=== PATIENT | female | born 1995 | race Caucasian/White ===

== ENCOUNTER 2018-06-09 18:57 | Emergency (ER) | payer OTHER ==
[2018-06-09 20:03] LABS: URINE PH (Dip) POC 6.5 (5.0-8.5)
[2018-06-09 20:03] LABS: URINE BLOOD (Dip) POC Negative (NEGATIVE); URINE GLUCOSE (Dip) POC Negative (NEGATIVE); URINE KETONES (Dip) POC 1+ (NEGATIVE); URINE LEUKOCYTE EST (Dip) POC 3+ (NEGATIVE); URINE NITRITE (Dip) POC Negative (NEGATIVE); URINE TOTAL PROTEIN POC 1+ (NEGATIVE)
[2018-06-09] MEDS: METOCLOPRAMIDE 10 MG INJ IV (20:26)
[2018-06-09] MEDS: ACETAMINOPHEN 500 MG TAB PO (20:26)
[2018-06-09] MEDS: SOD CHLORIDE 0.9% 1,000 ML IV (20:26)
[2018-06-09 20:37] LABS: ADD MAN DIFF? NO
[2018-06-09 20:38] LABS: BASOPHIL # 0.1 10^3/ul (0.0-0.1); BASOPHILS % 0.4 % (0.0-2.0); EOSINOPHILS # 0.2 10^3/ul (0.0-0.5); EOSINOPHILS % 1.1 % (0.0-7.0); HEMATOCRIT 37.8 % (37.0-47.0); HEMOGLOBIN 13.2 g/dl (12.0-16.0); LYMPHOCYTES # 1.6 10^3/ul (0.8-2.9); LYMPHOCYTES % 11.5 % (15.0-51.0); MEAN CORPUSCULAR HEMOGLOBIN 30.9 pg (29.0-33.0); MEAN CORPUSCULAR HGB CONC 34.9 g/dl (32.0-37.0); MEAN CORPUSCULAR VOLUME 88.5 fl (82.0-101.0); MEAN PLATELET VOLUME 11.2 fl (7.4-10.4); MONOCYTE # 0.9 10^3/ul (0.3-0.9); MONOCYTES % 6.5 % (0.0-11.0); NEUTROPHIL # 11.2 10^3/ul (1.6-7.5); NEUTROPHILS % 79.7 % (39.0-77.0); PLATELET COUNT 244 10^3/UL (140-415); RED BLOOD COUNT 4.27 10^6/ul (4.20-5.40); RED CELL DISTRIBUTION WIDTH 12.4 % (11.5-14.5)
[2018-06-09 20:38] LABS: WHITE BLOOD COUNT 14.1 10^3/ul (4.8-10.8)
[2018-06-09 20:47] LABS: ADD UMIC YES; UR AMORPHOUS CRYSTAL FEW /HPF (NONE SEEN); UR ASCORBIC ACID NEGATIVE (NEGATIVE); UR BACTERIA FEW /HPF (NONE SEEN); UR BILIRUBIN (Dip) NEGATIVE (NEGATIVE); UR BLOOD (Dip) NEGATIVE (NEGATIVE); UR CLARITY CLOUDY (CLEAR); UR COLOR YELLOW (YELLOW); UR GLUCOSE (Dip) NEGATIVE (NEGATIVE); UR KETONES (Dip) 1+ mg/dL (NEGATIVE); UR LEUKOCYTE ESTERASE (Dip) 3+ Leu/ul (NEGATIVE); UR NITRITE (Dip) NEGATIVE (NEGATIVE); UR RBC 3 /HPF (0-5); UR SPECIFIC GRAVITY (Dip) 1.009 (1.003-1.030); UR SQUAMOUS EPITHELIAL CELL MODERATE /HPF (FEW); UR TOTAL PROTEIN (Dip) NEGATIVE (NEGATIVE); UR UROBILINOGEN (Dip) NEGATIVE (NEGATIVE); UR WBC 11 /HPF (0-5)
[2018-06-09 21:12] LABS: ALANINE AMINOTRANSFERASE 25 IU/L (13-69); ALBUMIN 3.2 g/dl (3.3-4.9); ALBUMIN/GLOBULIN RATIO 0.91; ALKALINE PHOSPHATASE 64 IU/L (42-121); ANION GAP 13 (8-16); ASPARTATE AMINO TRANSFERASE 20 IU/L (15-46); BILIRUBIN,INDIRECT 0.3 mg/dl (0-1.1); BILIRUBIN,TOTAL 0.3 mg/dl (0.2-1.3); BLOOD UREA NITROGEN 3 mg/dl (7-20); CALCIUM 9.1 mg/dl (8.4-10.2); CARBON DIOXIDE 25 mmol/L (21-31); CHLORIDE 102 mmol/L (97-110); CREATININE 0.53 mg/dl (0.44-1.00); GLUCOSE 78 mg/dl (70-220); POTASSIUM 3.9 mmol/L (3.5-5.1); SODIUM 136 mmol/L (135-144); TOTAL PROTEIN 6.7 g/dl (6.1-8.1)
== END 2018-06-09 21:55 | disposition home or self-care (01) ==
LOC: FTE 18:57
DX: O99.89 Other specified diseases and conditions complicating pregnancy, childbirth and the puerperium (principal); R51 Headache; O23.42 Unspecified infection of urinary tract in pregnancy, second trimester; O21.9 Vomiting of pregnancy, unspecified; Z3A.14 14 weeks gestation of pregnancy
CPT/HCPCS: 76801; 80053; 81001; 81003; 81025; 85025; 87086; 96361; 96374; 99285-25

== ENCOUNTER 2018-10-05 15:21 | Outpatient (CLI) | payer OTHER ==
[2018-10-05 16:24] LABS: ADD UMIC YES; UR ASCORBIC ACID NEGATIVE (NEGATIVE); UR BILIRUBIN (Dip) NEGATIVE (NEGATIVE); UR BLOOD (Dip) NEGATIVE (NEGATIVE); UR CALCIUM OXALATE CRYSTAL MANY /HPF (NONE SEEN); UR CLARITY SLIGHTLY CLOUDY (CLEAR); UR COLOR YELLOW (YELLOW); UR GLUCOSE (Dip) NEGATIVE (NEGATIVE); UR KETONES (Dip) NEGATIVE (NEGATIVE); UR LEUKOCYTE ESTERASE (Dip) NEGATIVE Leu/ul (NEGATIVE); UR NITRITE (Dip) NEGATIVE (NEGATIVE); UR RBC 0 /HPF (0-5); UR SPECIFIC GRAVITY (Dip) 1.024 (1.003-1.030); UR TOTAL PROTEIN (Dip) 1+ mg/dl (NEGATIVE); UR UROBILINOGEN (Dip) 1+ mg/dL (NEGATIVE); UR WBC 2 /HPF (0-5)
[2018-10-05] MEDS: ACETAMINOPHEN 500 MG TAB PO (17:52)
== END 2018-10-05 18:25 | disposition home or self-care (01) ==
LOC: OBT 15:21 → L-D 15:22 → OBT 18:25
DX: O62.9 Abnormality of forces of labor, unspecified (principal); Z3A.31 31 weeks gestation of pregnancy
CPT/HCPCS: 76817; 76818; 81001

== ENCOUNTER 2018-11-22 18:21 | Inpatient (IN) | payer OTHER ==
[2018-11-22] MEDS ORDERED: OXYTOCIN 30 UNITS/LR 500 ML IV ×2 (21:00)
[2018-11-22] MEDS ORDERED: CARBOPROST 250 MCG INJ IM (21:00)
[2018-11-22] MEDS ORDERED: METHYLERGONOVINE 0.2 MG INJ IM (21:00)
[2018-11-22] MEDS ORDERED: IBUPROFEN 600 MG TAB PO (21:00)
[2018-11-22] MEDS ORDERED: OXYCODONE/ASPIRIN (4.88/325) TAB PO (21:00)
[2018-11-22] MEDS ORDERED: LIDOCAINE 1% (MPF) 30 ML INJ INJ (21:00)
[2018-11-22] MEDS ORDERED: BUTORPHANOL 2 MG INJ IV (21:00)
[2018-11-22] MEDS ORDERED: MISOPROSTOL 200 MCG TAB PR (21:00)
[2018-11-22] MEDS: LACTATED RINGER'S 1,000 ML IV (21:18)
[2018-11-22 21:51] LABS: ADD MAN DIFF? NO
[2018-11-22 21:52] LABS: BASOPHILS % 0.4 % (0.0-2.0); EOSINOPHILS # 0.1 10^3/ul (0.0-0.5); EOSINOPHILS % 0.9 % (0.0-7.0); HEMATOCRIT 33.5 % (37.0-47.0); HEMOGLOBIN 10.8 g/dl (12.0-16.0); LYMPHOCYTES # 1.8 10^3/ul (0.8-2.9); LYMPHOCYTES % 16.2 % (15.0-51.0); MEAN CORPUSCULAR HEMOGLOBIN 26.2 pg (29.0-33.0); MEAN CORPUSCULAR HGB CONC 32.2 g/dl (32.0-37.0); MEAN CORPUSCULAR VOLUME 81.3 fl (82.0-101.0); MEAN PLATELET VOLUME 12.3 fl (7.4-10.4); MONOCYTE # 1.2 10^3/ul (0.3-0.9); MONOCYTES % 10.6 % (0.0-11.0); NEUTROPHIL # 7.9 10^3/ul (1.6-7.5); NEUTROPHILS % 71.1 % (39.0-77.0); PLATELET COUNT 286 10^3/UL (140-415); RED BLOOD COUNT 4.12 10^6/ul (4.20-5.40); RED CELL DISTRIBUTION WIDTH 14.8 % (11.5-14.5)
[2018-11-22 21:52] LABS: WHITE BLOOD COUNT 11.1 10^3/ul (4.8-10.8)
[2018-11-22 21:59] LABS: ADD UMIC YES; UR ASCORBIC ACID NEGATIVE (NEGATIVE); UR BACTERIA FEW /HPF (NONE SEEN); UR BILIRUBIN (Dip) NEGATIVE (NEGATIVE); UR BLOOD (Dip) NEGATIVE (NEGATIVE); UR CLARITY SLIGHTLY CLOUDY (CLEAR); UR COLOR YELLOW (YELLOW); UR GLUCOSE (Dip) NEGATIVE (NEGATIVE); UR KETONES (Dip) NEGATIVE (NEGATIVE); UR LEUKOCYTE ESTERASE (Dip) TRACE Leu/ul (NEGATIVE); UR MUCUS MODERATE /HPF (NONE SEEN); UR NITRITE (Dip) NEGATIVE (NEGATIVE); UR RBC 1 /HPF (0-5); UR SPECIFIC GRAVITY (Dip) 1.024 (1.003-1.030); UR SQUAMOUS EPITHELIAL CELL FEW /HPF (FEW); UR TOTAL PROTEIN (Dip) 2+ mg/dl (NEGATIVE); UR UROBILINOGEN (Dip) 1+ mg/dL (NEGATIVE); UR WBC 6 /HPF (0-5)
[2018-11-22] MEDS: MISOPROSTOL 50 MCG CAPSULE PO (22:00)
[2018-11-22 22:10] LABS: ALANINE AMINOTRANSFERASE 15 IU/L (13-69); ALBUMIN 3.3 g/dl (3.3-4.9); ALKALINE PHOSPHATASE 165 IU/L (42-121); ANION GAP 10 (5-13); ASPARTATE AMINO TRANSFERASE 19 IU/L (15-46); BILIRUBIN,INDIRECT 0.3 mg/dl (0-1.1); BILIRUBIN,TOTAL 0.3 mg/dl (0.2-1.3); BLOOD UREA NITROGEN 9 mg/dl (7-20); CALCIUM 9.7 mg/dl (8.4-10.2); CARBON DIOXIDE 21 mmol/L (21-31); CHLORIDE 107 mmol/L (97-110); CREATININE 0.81 mg/dl (0.44-1.00); Estimated GFR > 60 mL/min (>60); GLUCOSE 84 mg/dl (70-220); POTASSIUM 4.3 mmol/L (3.5-5.1); SODIUM 138 mmol/L (135-144); TOTAL PROTEIN 6.3 g/dl (6.1-8.1); URIC ACID 5.7 mg/dl (3.1-7.9)
[2018-11-22 22:12] LABS: INR 0.97
[2018-11-22 22:13] LABS: PARTIAL THROMBOPLASTIN TIME 29.7 Sec (23.0-35.0)
[2018-11-22 22:40] LABS: HEPATITIS B SURFACE ANTIGEN NEGATIVE (NEGATIVE)
[2018-11-23] MEDS: MISOPROSTOL 50 MCG CAPSULE PO ×4 (02:01→14:14)
[2018-11-23] MEDS: LACTATED RINGER'S 1,000 ML IV ×4 (06:28→23:10)
[2018-11-23 20:39] LABS: RAPID PLASMA REAGIN NONREACTIVE (NR)
[2018-11-23] MEDS ORDERED: FENTAnyl 2MCG/ML-ROPIV 0.2% 100 ML (23:49)
[2018-11-24] MEDS ORDERED: FENTAnyl 2MCG/ML-ROPIV 0.2% 100 ML BAG EPI
[2018-11-24] MEDS ORDERED: DIPHENHYDRAMINE 50 MG INJ IV
[2018-11-24] MEDS ORDERED: NALOXONE (0.4 MG/ML) INJ IV
[2018-11-24] MEDS ORDERED: TRIMETHOBENZAMIDE 100 MG/ML VIAL IM
[2018-11-24] MEDS: OXYTOCIN 30 UNITS/LR 500 ML IV ×2 (01:58→06:17)
[2018-11-24] MEDS: LACTATED RINGER'S 1,000 ML IV ×3 (02:52→11:41)
[2018-11-24] MEDS: ONDANSETRON 4 MG INJ IV (04:23)
[2018-11-24] MEDS ORDERED: MAGNESIUM SULFATE 4 GM/100 ML 100 ML (04:41)
[2018-11-24] MEDS: MAGNESIUM SULFATE 4 GM/100 ML 100 ML IV (05:03)
[2018-11-24] MEDS: MAGNESIUM SULFATE 20 GM/500 ML 500 ML IV ×2 (05:07→15:10)
[2018-11-24] MEDS ORDERED: ZOLPIDEM 5 MG TAB PO (08:30)
[2018-11-24] MEDS ORDERED: MISOPROSTOL 200 MCG TAB PR (08:30)
[2018-11-24] MEDS ORDERED: CARBOPROST 250 MCG INJ IM (08:30)
[2018-11-24] MEDS ORDERED: OXYCODONE/ASPIRIN (4.88/325) TAB PO ×2 (08:30)
[2018-11-24] MEDS ORDERED: OXYTOCIN 30 UNITS/LR 500 ML IV (08:30)
[2018-11-24] MEDS ORDERED: METHYLERGONOVINE 0.2 MG INJ IM (08:30)
[2018-11-24] MEDS ORDERED: LANOLIN HPA 1 PKT TOP (08:30)
[2018-11-24] MEDS: SENNA/DOCUSATE NA (8.6MG/50MG) TAB PO ×2 (09:00→21:00)
[2018-11-24] MEDS: IBUPROFEN 600 MG TAB PO ×2 (11:41→18:21)
[2018-11-24 12:23] LABS: MAGNESIUM 4.8 mg/dl (1.7-2.5)
[2018-11-24] MEDS: WITCH HAZEL/GLYCERIN PAD PR (16:54)
[2018-11-24] MEDS: LABETALOL 200 MG TAB PO ×2 (16:55→22:00)
[2018-11-24] MEDS: BENZOCAINE 20% 56 ML SPRAY TOP (16:55)
[2018-11-24 20:00] LABS: MAGNESIUM 5.6 mg/dl (1.7-2.5)
[2018-11-25] MEDS: IBUPROFEN 600 MG TAB PO ×4 (00:06→18:25)
[2018-11-25 01:27] LABS: MAGNESIUM 5.6 mg/dl (1.7-2.5)
[2018-11-25] MEDS: LABETALOL 200 MG TAB PO ×3 (06:00→22:00)
[2018-11-25 08:43] LABS: ADD MAN DIFF? NO
[2018-11-25 08:46] LABS: BASOPHIL # 0.1 10^3/ul (0.0-0.1); BASOPHILS % 0.5 % (0.0-2.0); EOSINOPHILS # 0.2 10^3/ul (0.0-0.5); EOSINOPHILS % 1.2 % (0.0-7.0); HEMATOCRIT 29.1 % (37.0-47.0); HEMOGLOBIN 9.4 g/dl (12.0-16.0); LYMPHOCYTES # 1.6 10^3/ul (0.8-2.9); LYMPHOCYTES % 10.4 % (15.0-51.0); MEAN CORPUSCULAR HEMOGLOBIN 26.6 pg (29.0-33.0); MEAN CORPUSCULAR HGB CONC 32.3 g/dl (32.0-37.0); MEAN CORPUSCULAR VOLUME 82.2 fl (82.0-101.0); MEAN PLATELET VOLUME 12.2 fl (7.4-10.4); MONOCYTE # 1.4 10^3/ul (0.3-0.9); MONOCYTES % 9.3 % (0.0-11.0); NEUTROPHIL # 11.7 10^3/ul (1.6-7.5); NEUTROPHILS % 77.8 % (39.0-77.0); PLATELET COUNT 217 10^3/UL (140-415); RED BLOOD COUNT 3.54 10^6/ul (4.20-5.40); RED CELL DISTRIBUTION WIDTH 15.2 % (11.5-14.5)
[2018-11-25] MEDS: SENNA/DOCUSATE NA (8.6MG/50MG) TAB PO ×2 (09:00→21:11)
[2018-11-26] MEDS: IBUPROFEN 600 MG TAB PO ×2 (00:39→06:11)
[2018-11-26] MEDS: LABETALOL 200 MG TAB PO (06:00)
[2018-11-26] MEDS: DIPHTH/TET/ACEL PERTUSS (ADULT) 0.5 ML VIAL IM* (07:44)
[2018-11-26] MEDS: SENNA/DOCUSATE NA (8.6MG/50MG) TAB PO (08:50)
[2018-11-28 12:22] LABS: RUBELLA ANTIBODY - IGG <0.90 index; RUBELLA ANTIBODY - IGM <20.00 AU/mL
== END 2018-11-26 12:30 | disposition home or self-care (01) | DRG 807 ==
LOC: PP1 11-24 17:27 → L-D 18:21
PROC: 10E0XZZ Delivery of Products of Conception, External Approach (ICD-10-PCS; principal; 2018-11-24)
DX: O14.94 Unspecified pre-eclampsia, complicating childbirth (principal); Z37.0 Single live birth; O69.81X0 Labor and delivery complicated by cord around neck, without compression, not applicable or unspecified; O77.0 Labor and delivery complicated by meconium in amniotic fluid; O71.82 Other specified trauma to perineum and vulva; O90.81 Anemia of the puerperium; D64.9 Anemia, unspecified; O92.12 Cracked nipple associated with the puerperium; Z3A.38 38 weeks gestation of pregnancy
CPT/HCPCS: 62319; 76815; 80053; 81001; 83735; 84560; 85025; 85384; 85610; 85730; 86592; 86762; 86850; 86900; 86901; 87340; 99464

== ENCOUNTER 2018-11-27 13:39 | Emergency (ER) | payer SELFPAY, OTHER | END 2018-11-27 15:56 | disposition left against medical advice (07) | LOC: FTE 13:39 | DX: Z53.21 Procedure and treatment not carried out due to patient leaving prior to being seen by health care provider (principal) ==